=== PATIENT | female | born 1955 | race Caucasian/White ===

== ENCOUNTER 2024-12-23 12:09 | Emergency (ER) | payer MEDICARE, BC | END 2024-12-23 14:45 | disposition home or self-care (01) | LOC: DL.ED 12:09 | DX: S52.515A Nondisplaced fracture of left radial styloid process, initial encounter for closed fracture (principal); S52.592A Other fractures of lower end of left radius, initial encounter for closed fracture; W18.39XA Other fall on same level, initial encounter; Y93.89 Activity, other specified | CPT/HCPCS: 73110-LT; 99283 ==